=== PATIENT | female | born 1985 | race Caucasian/White ===

== ENCOUNTER 2017-03-05 12:00 | Emergency (ER) | payer MEDICAID ==
[2017-03-05 12:14] VITALS: BP 117/85
--- NOTE | 2017-03-05 12:24 | EDM.PDOC ---
ED HPI GENERAL MEDICAL PROBLEM - General Chief Complaint: Head Injury Stated Complaint: FACIAL INJURIES Time Seen by Provider: 03/05/17 12:15 Source of Information: Reports: Patient History Limitations: Reports: No Limitations - History of Present Illness INITIAL COMMENTS - FREE TEXT/NARRATIVE: Patient is a 32-year-old female who presents to the ED complaining of right- sided facial pain with mild swelling. Patient states she was pushing a child on a swing that goes in a circular motion and was accidentally hit in the face with a metal bar. She was knocked out for a short period of time. She did come to and was mildly confused. She has some mild swelling to the right side of her face with concerns for fractures. There is no vision changes, nausea/vomiting, neck pain, and back pain, and no numbness/tingling to extremities, or any additional complaints. Patient has no previous past medical history is currently taking no medications. She offers no additional complaints. 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 [No Known Home Meds] 03/05/17 [History] ED ROS GENERAL - Review of Systems Review Of Systems: See Below GI/Abdominal: Denies: Nausea, Vomiting Musculoskeletal: Denies: Neck Pain, Back Pain Neurological: Denies: Dizziness, Headache, Numbness, Tingling ED EXAM, HEAD INJURY - Physical Exam Exam: See Below Exam Limited By: No Limitations General Appearance: Alert, WD/WN, No Apparent Distress Head: Other (mild swelling around the right orbit and cheek with increased pain with palpation. No bony antibodies noted. No bruising noted.) Nexus Criteria: No: Posterior, Midline Cervical Tenderness, Evidence of Intoxication, Altered Level of Consciousness, Focal Neurological Deficit, Painful Distraction Injuries Eyes: Bilateral Eye: EOMI, PERRL Ears: Normal External Exam, Normal Canal, Hearing Grossly Normal, Normal TMs Nose: Normal Mucousa, No Blood, Nasal Swelling, Nasal Tenderness. No: Nasal Ecchymosis, Septal Deformity, Septal Hematoma Throat/Mouth: Normal Inspection, Normal Oropharynx, Normal Voice, No Airway Compromise Neck: Non-Tender, Full Range of Motion, Normal Alignment, Normal Inspection Respiratory: No Respiratory Distress, Lungs Clear, Normal Breath Sounds, No Accessory Muscle Use, Chest Non-Tender Cardiovascular: Normal Peripheral Pulses, Regular Rate, Rhythm, No Murmur GI/Abdominal Exam (Abbreviated): Normal Bowel Sounds, Soft, Non-Tender, No Organomegaly, No Distention Back Exam: Normal Inspection, Full Range of Motion Extremities: No Evidence of Injury, Normal Range of Motion Neurologic: 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 Both revealed no acute bony abnormalities.Reviewed studies with patient. She is ready to be discharged home. She has no additional complaints at this time. Departure - Departure Time of Disposition: 13:33 Disposition: Home, Self-Care 01 Condition: good Clinical Impression: Concussion with less than 1 hour loss of consciousness Contusion of face Qualifiers: Encounter type: initial encounter Qualified Code(s): S00.83XA - Contusion of other part of head, initial encounter - Discharge Information Instructions: Head Injury, Adult, [id number], Facial or Scalp Contusion, Easy -to-Read, Post-Concussion Syndrome, [id number], Concussion, Adult, Easy-to- Read Referrals: PCP,None [Primary Care Provider] - Forms: ED Department Discharge Additional Instructions: Take Tylenol as needed for pain for the next 48 hours. Refrain from any NSAIDs just in case you did have a concussion. Return to the E.D. if you develop vision changes, worst headache of your life, nausea/vomiting, numbness or tingling to extremities, increased drowsiness, hard to arouse, change in mentation,or any focal neurological deficits. Apply ice to affected area as needed.
--- NOTE | 2017-03-05 12:56 | CT ---
CT facial bones Technique: Multiple axial sections through the facial bones were obtained. Reconstructed coronal and sagittal images were reviewed. Findings: Rounded soft tissue abnormality is noted within the left maxillary sinus measuring 1.8 cm in size which is felt compatible with incidental retention cyst. Other paranasal sinuses are clear. There appears to be several defects within portions of the anterior teeth suggesting dental caries. Please correlate. Mandible shows no fracture. Periorbital belcher are intact. No paranasal sinus fracture is seen. Zygomatic arches are intact. Impression: 1. Possible dental caries within several anterior teeth. Please correlate. 2. Retention cyst within the left maxillary sinus which is incidental. 3. No acute bony abnormality is seen on CT study of the facial bones. Diagnostic code #2
--- NOTE | 2017-03-05 13:02 | CT ---
Head CT Technique: Multiple axial sections through the brain were obtained. Intravenous contrast was not utilized. Comparison: No previous intracranial imaging is available. Findings: Ventricles along with basal cisterns and sulci over the convexities are within normal limits for the patient's age. No abnormal parenchymal densities are seen. No evidence of intracranial hemorrhage. No midline shift or mass effect is seen. Bone window settings were reviewed which shows a retention cyst within the left maxillary sinus. No acute calvarial abnormality is seen. Impression: 1. No acute intracranial abnormality is identified. Diagnostic code #2
== END 2017-03-05 14:00 | disposition home or self-care (01) ==
LOC: JD.ED 12:00
DX: S06.0X9A Concussion with loss of consciousness of unspecified duration, initial encounter (principal); S00.83XA Contusion of other part of head, initial encounter; Z88.1 Allergy status to other antibiotic agents; W22.8XXA Striking against or struck by other objects, initial encounter; Y93.89 Activity, other specified
CPT/HCPCS: 70450; 70450-26; 70486; 70486-26; 99283-25; 99284

== ENCOUNTER 2017-10-18 14:05 | Emergency (ER) | payer MEDICAID ==
[2017-10-18 14:16] VITALS: BP 122/86
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
--- NOTE | 2017-10-19 08:07 | CR ---
Left fourth finger: Four views of the left fourth finger were obtained. Comparison: No previous study. Tuft fracture is identified within the distal fourth finger. Soft tissue swelling is noted. No additional fracture or other bony abnormality is seen. Impression: 1. Small tuft fracture. Diagnostic code #3
== END 2017-10-18 15:40 | disposition home or self-care (01) ==
LOC: JD.ED 14:05
DX: S62.665A Nondisplaced fracture of distal phalanx of left ring finger, initial encounter for closed fracture (principal); F17.210 Nicotine dependence, cigarettes, uncomplicated; Z88.1 Allergy status to other antibiotic agents; X58.XXXA Exposure to other specified factors, initial encounter
CPT/HCPCS: 73140-26-F3; 73140-F3; 99283

== ENCOUNTER 2017-12-30 10:20 | Emergency (ER) | payer MEDICAID ==
[2017-12-30 10:39] VITALS: BP 120/79
--- NOTE | 2017-12-30 10:56 | EDM.PDOC ---
ED HPI GENERAL MEDICAL PROBLEM - General Chief Complaint: Back Pain or Injury Stated Complaint: BACK PAIN Time Seen by Provider: 12/30/17 10:41 Source of Information: Reports: Patient History Limitations: Reports: No Limitations - History of Present Illness INITIAL COMMENTS - FREE TEXT/NARRATIVE: The patient presents with low back pain. This started yesterday. The patient had a lumbar fusion 4 years ago in [place], [place]. She has been doing good until yesterday. She was doing normal everyday chores and the back pain started. She has no numbness or weakness. She has no bowel or bladder problems. She can sit up okay but when she lays back it hurts more. Onset: Sudden Duration: Day(s): (Yesterday) Location: Reports: Back Quality: Reports: Sharp Severity: Severe Improves with: Reports: Immobilization Worsens with: Reports: Movement Context: Reports: Activity (Normal chores around the house) Associated Symptoms: Reports: No Other Symptoms Treatments MANAGER LIFE SCIENCES: Reports: NSAIDS Other Treatments MANAGER LIFE SCIENCES: took 400 mg at 1000 lower back/neck region Pain Score (Numeric/FACES): 6 - Related Data Allergies Allergy/AdvReac Type Severity Reaction Status Date / Time amoxicillin Allergy Hives Verified 12/30/17 10:40 Home Meds: Home Meds Cyclobenzaprine [Flexeril] 10 mg PO TID PRN #20 tab 12/30/17 [Rx] Hydrocodone/Acetaminophen [Hydrocodon-Acetaminophen 5-325] 1 - 2 each PO Q6HR PRN #20 tablet 12/30/17 [Rx] hydrOXYzine HCl [Atarax] 50 mg PO TID 12/30/17 [History] Past Medical History - Past Health History Medical/Surgical History: Denies 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: - Past Surgical History Musculoskeletal Surgical History: Reports: Other (See Below) Other Musculoskeletal Surgeries/Procedures:: lumbar back fusion 2015 in [place], [place] Social & Family History - Family History Family Medical History: Noncontributory - Tobacco Use Smoking Status *Q: Current Every Day Smoker Years of Tobacco use: 16 Packs/Tins Daily: 1 - Caffeine Use Caffeine Use: Reports: Coffee - Recreational Drug Use Recreational Drug Use: No ED ROS GENERAL - Review of Systems Review Of Systems: See Below Constitutional: Reports: No Symptoms HEENT: Reports: No Symptoms Respiratory: Reports: No Symptoms Cardiovascular: Reports: No Symptoms Endocrine: Reports: No Symptoms GI/Abdominal: Reports: Constipation : Reports: No Symptoms Musculoskeletal: Reports: Back Pain Skin: Reports: No Symptoms Neurological: Reports: No Symptoms ED EXAM,LOWER BACK PAIN/INJURY - Physical Exam Exam: See Below Exam Limited By: No Limitations General Appearance: Alert, No Apparent Distress Ears: Normal External Exam Nose: Normal Inspection Head: Atraumatic, Normocephalic Neck: Normal Inspection Respiratory/Chest: No Respiratory Distress, Lungs Clear, Normal Breath Sounds Cardiovascular: Regular Rate, Rhythm, No Edema, No Murmur GI/Abdominal: Soft, Non-Tender, No Organomegaly, No Mass Back Exam: Other (Very mild pain upon palpation to the lower back) Extremities: Normal Inspection Neurological: Alert, No Motor/Sensory Deficits, Oriented x 3 Course - Vital Signs Last Recorded V/S: Last Vital Signs Temp 97.7 F 12/30/17 10:26 Pulse 63 12/30/17 10:26 Resp 18 12/30/17 10:26 BP 120/79 12/30/17 10:26 Pulse Ox 100 12/30/17 10:26 Departure - Departure Time of Disposition: 11:00 Disposition: Home, Self-Care 01 Condition: Good Clinical Impression: Low back pain Qualifiers: Chronicity: acute Back pain laterality: bilateral Sciatica presence: without sciatica Qualified Code(s): M54.5 - Low back pain - Discharge Information Prescriptions: Hydrocodone/Acetaminophen [Hydrocodon-Acetaminophen 5-325] 1 - 2 each PO Q6HR PRN #20 tablet PRN Reason: Pain Cyclobenzaprine [Flexeril] 10 mg PO TID PRN #20 tab PRN Reason: Pain Referrals: PCP,Unknown [Primary Care Provider] - Forms: ED Department Discharge Additional Instructions: Take motrin or aleve for pain. Take hydrocodone and flexeril as needed for pain. Follow up with your doctor in 1 week if you are not better.
== END 2017-12-30 11:13 | disposition home or self-care (01) ==
LOC: JD.ED 10:20
DX: M54.5 Low back pain (principal); F17.210 Nicotine dependence, cigarettes, uncomplicated; Z88.1 Allergy status to other antibiotic agents; Z98.1 Arthrodesis status
CPT/HCPCS: 99283